=== PATIENT | male | born 1965 | race African-American/Black ===

== ENCOUNTER 2018-07-05 13:42 | Outpatient (CLI) | payer MEDICARE ==
[2018-07-05] MEDS ORDERED: Sodium Chloride 0.9% 15 ML NEB ONE (15:56)
--- NOTE | 2018-07-05 22:29 | HP ---
DATE OF SERVICE: 07/05/2018 HISTORY OF PRESENT ILLNESS: Mr. Shaheed Jones is a very pleasant 53-year-old gentleman who pre sents to the Wound Center for evaluation of left lower extremity lymphedema. The patient states that he developed left lower extremity lymphedema after 2 surgical procedures of the left lower extremity . The patient was referred to the Wound Center by Dr. Emiliano England. The patient states that he castillo s been treated for lymphedema in the past at the [facility] and also by an occupational therap ist. He states that presently he sees his occupational therapist once a year. He states that he has been fitted with compression garments for left lower extremity lymphedema which he uses consistently . The patient states that he has also been taught how to apply the compression wraps to his left low er extremity. PAST MEDICAL HISTORY: Hypertension. PAST SURGICAL HISTORY: 1. Facial surgery for orbital fracture. 2. Left knee surgery x2. 3. Multiple surgical procedures of right and left upper extremities. MEDICATIONS: 1. Flexeril. 2. Hydrochlorothiazide. 3. Indocin. 4. Lisinopril. 5. Ambien. ALLERGIES: PENICILLIN. SOCIAL HISTORY: Social history is negative for tobacco or EtOH use. FAMILY HISTORY: Family history is negative for coronary artery disease. Family history significant for diabetes mellitus. The patient states that his uncle was diagnosed with diabetes mellitus. PHYSICAL EXAMINATION: VITAL SIGNS: Temperature 97.8, pulse 86, respirations 19, blood pressure 132/76. GENERAL: A 53-year-old gentleman sitting on chair in examination room in no acute distress. HEENT: Normocephalic, atraumatic. NECK: No nuchal rigidity. CHEST: Clear to auscultation. CARDIOVASCULAR: Regular rate and rhythm. ABDOMEN: Soft. EXTREMITIES: Lymphedema of the left lower extremity is present on exam today. Circumferences of the left lower extremity at the ankle, calf, knee and thigh are: 41 cm, 74 cm, 74 cm, and 76 cm. An ul ceration of the left medial lower leg is present which measures approximately 2.0 x 4.5 cm. Granulat ion tissue is present within the wound margins. No purulent drainage is associated with the wound. No erythema of the skin surrounding the wound is present. No maceration of the skin of the periwound is noted. NEUROLOGIC: Grossly nonfocal. ASSESSMENT AND PLAN: 1. Left lower extremity lymphedema as described above. The patient has hyperpigmentation of the ski n of the left lower leg. Arrangements will be made for the initiation of in-home lymphedema therapy with a pneumatic pump. Arrangements will also be made for the home delivery of dressing supplies. T he patient has been instructed to perform dressing changes of Xeroform gauze followed by bordered rahatu ze on a daily basis after cleansing and irrigation. The patient understands and is in agreement with the preceding treatment plan. The patient states he has a followup appointment with Dr. England in t he next few days. 2. Hypertension.
== END 2018-07-05 13:43 | disposition home or self-care (01) ==
LOC: WCC 13:42
PROVIDERS: ATTEND Family Medicine
DX: I97.89 Other postprocedural complications and disorders of the circulatory system, not elsewhere classified (principal); I89.0 Lymphedema, not elsewhere classified; L97.829 Non-pressure chronic ulcer of other part of left lower leg with unspecified severity; L81.9 Disorder of pigmentation, unspecified; I10 Essential (primary) hypertension
CPT/HCPCS: 97139; 97602; G0463; 99203; A4218

== ENCOUNTER 2018-08-16 13:16 | Outpatient (CLI) | payer MEDICARE ==
--- NOTE | 2018-08-16 15:12 | PRG ---
DATE OF SERVICE: 08/16/2018 SUBJECTIVE: Mr. Shaheed Jones is a very pleasant 53-year-old gentleman, who presents to the wound center for evaluation of left lower extremity lymphedema. The patient previously stated that he developed left lower extremity lymphedema after two surgical procedures of the left lower extremity. The patient was referred to the wound center by Dr. Emiliano England. The patient stated that he had been treated for lymphedema in the past at the [facility] and also by an occupational therapist. He stated that currently he sees his occupational therapist once a year. He stated that he has been fitted with compression garments for left lower extremity lymphedema, which he utilizes consistently. The patient stated that he had also been taught how to apply the compression wraps to his left lower extremity. OBJECTIVE: VITAL SIGNS: Temperature 97.8, pulse 90, respirations 18, and blood pressure 142/86. EXTREMITIES: Lymphedema of the left lower extremity is present on exam today. Circumferences of the left lower extremity at the ankle, calf, knee, and thigh are 45.5 cm, 75 cm, 79.5 cm, and 78 cm. Circumferences of the right lower extremity at the ankle, calf, and knee are 40 cm, 52 cm, and 46 cm. An ulceration of the left medial lower leg is present, which measures approximately 3.4 x 2.0 cm. Granulation tissue is present within the wound margins. No purulent drainage is associated with the wound. No erythema of the skin surrounding the wound is present. No maceration of the skin of the periwound is noted. The dimensions of the wound at the time of the patient's last visit were approximately 2.0 x 4.5 cm. ASSESSMENT AND PLAN: 1. Left lower extremity lymphedema as described above. The patient has hyperpigmentation of the skin of the left lower leg. Arrangements will continue for the initiation of in-home lymphedema therapy with a pneumatic pump. Arrangements were previously made for the home delivery of dressing supplies. The patient has been instructed to continue dressing changes of Xeroform gauze followed by Bordered gauze on a daily basis after cleansing and irrigation. The patient will return to the wound center on 09/06/2018. 2. Hypertension. Job ID: [id number]
== END 2018-08-16 13:17 | disposition home or self-care (01) ==
LOC: WCC 13:16
PROVIDERS: ATTEND Family Medicine
DX: I89.0 Lymphedema, not elsewhere classified (principal); I10 Essential (primary) hypertension

== ENCOUNTER 2018-09-06 13:14 | Outpatient (CLI) | payer MEDICARE ==
--- NOTE | 2018-09-06 14:14 | PRG ---
DATE OF SERVICE: SUBJECTIVE: Mr. Shaheed Jones is a very pleasant 53-year-old gentleman, who presents to the Wound Center for evaluation of left lower extremity lymphedema. The patient previously stated that he developed left lower extremity lymphedema after 2 surgical procedures of the left lower extremity. The patient was referred to the Wound Center by Dr. Emiliano England. The patient stated that he had been treated for lymphedema in the past at the [facility] and also by an occupational therapist. He stated that presently he sees his occupational therapist once a year. He stated that he has been fitted with compression garments for left lower extremity lymphedema, which he utilizes consistently. The patient stated that he has also been taught how to apply compression wraps to his left lower extremity. OBJECTIVE: VITAL SIGNS: Temperature 97.8, pulse 95, respirations 18, blood pressure 140/81. EXTREMITIES: Lymphedema of the left lower extremity is present on today's exam. Circumferences of the left lower extremity at the ankle, calf, knee, and thigh are 35 cm, 73 cm, 72 cm, and 76 cm. An ulceration of the left medial lower leg is present which measures approximately 4.3 x 1.7 cm. Granulation tissue is present within the wound margins. No purulent drainage is associated with the wound. No erythema of the skin surrounding the wound is present. No maceration of the skin of the periwound is noted. The dimensions of the wound at the time of the patient's last visit were approximately 3.4 x 2.0 cm. ASSESSMENT AND PLAN: 1. Left lower extremity lymphedema as described above. The patient has hyperpigmentation of the skin of the left lower leg. Arrangements will continue for the initiation of in-home lymphedema therapy with a pneumatic pump. Arrangements were previously made for the home delivery of dressing supplies. The patient has been instructed to continue dressing changes of Xeroform gauze followed by Bordered gauze on a daily basis after cleansing and irrigation. The patient will return to the Wound Center on 10/11/2018. 2. Hypertension. Job ID: [id number]
[2018-09-06] MEDS ORDERED: Sodium Chloride 0.9% 15 ML NEB ONE (18:00)
== END 2018-09-06 13:15 | disposition home or self-care (01) ==
LOC: WCC 13:14
PROVIDERS: ATTEND Family Medicine
DX: I89.0 Lymphedema, not elsewhere classified (principal); I10 Essential (primary) hypertension
CPT/HCPCS: 97602; A4218

== ENCOUNTER 2018-10-11 11:34 | Outpatient (CLI) | payer MEDICARE ==
--- NOTE | 2018-10-11 13:48 | PRG ---
DATE OF SERVICE: 10/11/2018 HISTORY: Mr. Shaheed Jones is a very pleasant 53-year-old gentleman, who presents to the Wound Center for evaluation of left lower extremity lymphedema. The patient previously stated that he developed left lower extremity lymphedema after 2 surgical procedures of the left lower extremity. The patient was referred to the Wound Center by Dr. Emiliano England. The patient stated that he had been treated for lymphedema in the past at the [facility] and also by an occupational therapist. He stated in the past that he saw his occupational therapist once a year. The patient stated that he had been fitted with compression garments for left lower extremity lymphedema, which he utilizes consistently. The patient stated that he had also been taught how to apply compression wraps to his left lower extremity. PHYSICAL EXAMINATION: VITAL SIGNS: Temperature 98.0, pulse 84, respirations 17, and blood pressure 138/84. EXTREMITIES: Lymphedema of the left lower extremity is present on exam today. An ulceration of the left medial lower leg is present, which measures approximately 2.9 x 2.2 cm. The dimensions of the wound at the time of the patient's last visit were approximately 4.3 x 1.7 cm. Granulation tissue is present within the wound margins. No purulent drainage is associated with the wound. No erythema of the skin surrounding the wound is present. No maceration of the skin of the periwound is noted. ASSESSMENT AND PLAN: 1. Left lower extremity lymphedema as described above. The patient has hyperpigmentation of the skin of the left lower leg. The patient is utilizing his pneumatic pump for in-home lymphedema therapy. Arrangements have been made for delivery of an accessory, which will allow the patient to perform lymphedema therapy for both lower extremities simultaneously, the patient has been instructed to continue dressing changes of Xeroform gauze followed by Bordered gauze on a daily basis after cleansing and irrigation. 2. History of chronic osteomyelitis. Arrangements will be made for evaluation by Infectious Diseases for IV antibiotics in conjunction with hyperbaric oxygen therapy. 3. Hypertension. Job ID: [id number]
== END 2018-10-11 11:35 | disposition home or self-care (01) ==
LOC: WCC 11:34
PROVIDERS: ATTEND Family Medicine
DX: I89.0 Lymphedema, not elsewhere classified (principal); I10 Essential (primary) hypertension

== ENCOUNTER 2019-08-19 14:18 | Outpatient (CLI) | payer MEDICARE, OTHER ==
[~2019-08-19 14:18] MED LIST: Sodium Chloride 0.9% 15 ML NEB ONE
--- NOTE | 2019-08-19 15:02 | PRG ---
DATE OF SERVICE: 08/19/2019 HISTORY: Mr. Shaheed Jones is a very pleasant 54-year-old gentleman, who presents to the Wound Center for evaluation of 4 wounds of the left lower extremity in the setting of left lower extremity lymphedema. The patient previously stated that he developed left lower extremity lymphedema after 2 surgical procedures of the left lower extremity. The patient was referred to the Wound Center by Dr. Emiliano England. The patient stated that he had been treated for lymphedema in the past at the [facility] and also by an occupational therapist. He stated that he had been seen by his occupational therapist once a year. He stated that he had been fitted with compression garments for left lower extremity lymphedema, which he utilized consistently. The patient stated that he had also been taught the proper application of compression wraps to his left lower extremity. PHYSICAL EXAMINATION: VITAL SIGNS: Pulse 91, respirations 18, blood pressure 125/76. EXTREMITIES: Lymphedema of the left lower extremity is present on exam today. An ulceration of the left medial lower leg is present, which measures approximately 1.5 x 3.0 x 0.1 cm. An ulceration of the left lateral lower leg is present, which measures approximately 0.5 x 0.5 x 0.1 cm. An ulceration of the left thigh is present, which measures approximately 0.2 x 1.1 x 0.9 cm. An ulceration of the left anterior lower leg is present, which measures approximately 0.8 x 0.4 x 0.1 cm. Granulation tissue is present within the margins of each wound. A moderate serosanguineous drainage is associated with each wound. No erythema of the skin surrounding either wound is present. No maceration of the skin of the periwound of either wound is noted. ASSESSMENT AND PLAN: 1. Left lower extremity lymphedema as described above. The patient has hyperpigmentation of the skin of the left lower leg. The patient has received a pneumatic pump for in-home lymphedema therapy. The patient has been instructed to continue dressing changes of Xeroform gauze, followed by bordered gauze on a daily basis after cleansing and irrigation. 2. History of chronic osteomyelitis. Arrangements will be made for evaluation by Infectious Diseases for IV antibiotics in conjunction with hyperbaric oxygen therapy. 3. Hypertension. Job ID: [id number]
== END 2019-08-19 14:19 | disposition home or self-care (01) ==
LOC: WCC 14:18
PROVIDERS: ATTEND Family Medicine
DX: I89.0 Lymphedema, not elsewhere classified (principal); L97.829 Non-pressure chronic ulcer of other part of left lower leg with unspecified severity; I10 Essential (primary) hypertension; Z87.39 Personal history of other diseases of the musculoskeletal system and connective tissue